=== PATIENT | female | born 1990 | race Caucasian/White ===

== ENCOUNTER 2018-12-18 09:44 | Inpatient (IN) | payer MEDICAID ==
[~2018-12-18 09:44] MED LIST: Buffered Lidocaine 1% SYRIN* 1 ML/SYRINGE INTRADERM ONE; Famotidine IV* 10 MG/ML 2 ML (20 mg) IV ONE; Lactated Ringers 1000 ML Bag* 1,000 ML IV SCH
[2018-12-18] MEDS ORDERED: KETAMINE HCL* 50 MG/ML 10 ML VIAL ONE (10:23)
[2018-12-18] MEDS ORDERED: fentaNYL* 50 MCG/ML 2 ML VIAL (100 MCG VIAL) ONE (10:23)
[2018-12-18] MEDS ORDERED: Midazolam* 1 MG/ML 5 ML VIAL (5 MG) ONE (10:24)
[2018-12-18] MEDS ORDERED: Morphine PF AMP (0.5MG/ML)* 5 MG/10 ML AMP ONE (10:24)
[2018-12-18] MEDS ORDERED: ceFOXitin 2 GM IVPREMIX* 2 GM/50 ML BAG ONE (10:31)
[2018-12-18] MEDS ORDERED: Scopolamine 1.5 mg* PATCH ONE (11:17)
[2018-12-18] MEDS ORDERED: PROCHLORPERAZINE INJ 5 MG/ML 2 ML VIAL IV PRN (11:20)
[2018-12-18] MEDS ORDERED: Ondansetron INJ* 2 MG/ML VIAL IV PRN (11:20)
[2018-12-18] MEDS ORDERED: oxyCODONE/Acetamin 5/325 MG* TAB PO PRN (11:20)
[2018-12-18] MEDS ORDERED: DiMENhydriNATE IV* 50 MG/ML VIAL IV PUSH PRN (11:20)
[2018-12-18] MEDS ORDERED: Ketorolac INJ* 30 MG/ML 1 ML VIAL IV PRN (11:20)
[2018-12-18] MEDS ORDERED: Naloxone* 0.4 MG/ML 1 ML VIAL IV PRN ×2 (11:20→11:24)
[2018-12-18] MEDS ORDERED: Scopolamine 1.5 mg* PATCH TRANSDERM PRN (11:20)
[2018-12-18] MEDS ORDERED: Naloxone* 2 MG in NS 0.9% 250 ML* 250 ML IV PRN (11:20)
[2018-12-18] MEDS ORDERED: fentaNYL* 50 MCG/ML 2 ML VIAL (100 MCG VIAL) IV PRN (11:24)
[2018-12-18] MEDS ORDERED: Phenylephrine 10 MG/ML VIAL* 1 ML VIAL ONE (11:42)
[2018-12-18] MEDS ORDERED: Ketorolac INJ* 30 MG/ML 1 ML VIAL ONE (11:42)
[2018-12-18] MEDS ORDERED: EPHEDrine (Pressors)* 50 MG/ML VIAL ONE (11:42)
[2018-12-18] MEDS ORDERED: Ondansetron INJ* 2 MG/ML VIAL ONE (11:42)
[2018-12-18] MEDS ORDERED: Dexamethasone IV* 4 MG/ML 1 ML (4 MG) ONE (11:42)
[2018-12-18] MEDS ORDERED: OXYTOCIN* 10 UNITS/ML 1 ML VIAL ONE (11:51)
[2018-12-18] MEDS ORDERED: Witch Hazel PAD* JAR TOPICAL PRN (12:09)
[2018-12-18] MEDS ORDERED: Acetaminophen TAB* 325 MG PO PRN (12:09)
[2018-12-18] MEDS ORDERED: Tetan/Diph/Pertus SYR(Tdap)* 0.5 ML SYR(BOOSTRIX) use SYR IM ONE (12:09)
[2018-12-18] MEDS ORDERED: Glycerin ADULT SUPP PR PRN (12:09)
[2018-12-18] MEDS ORDERED: Dibucaine 1% 28.35 GM TUBE PR PRN (12:09)
[2018-12-18] MEDS ORDERED: Lactated Ringers 1000 ML Bag* 1,000 ML IV SCH (13:00)
[2018-12-18] MEDS ORDERED: Oxytocin in LR* 20 UNITS/1,000 ML BAG IVPB SCH (13:00)
[2018-12-18] MEDS: Nalbuphine* 10 MG/ML 1 ML VIAL IV PRN (13:18)
[2018-12-18] MEDS: Simethicone TAB* 80 MG TAB.CHEW PO SCH ×3 (17:46→21:05)
[2018-12-18] MEDS: Docusate CAP* 100 MG PO SCH ×2 (17:46→21:05)
--- NOTE | 2018-12-18 21:48 | OP ---
OPERATIVE REPORT: DATE OF OPERATION: 12/18/18 DATE OF : 89 SURGEON: Jc Brand MD. BUILDING ADMIN: Toño Daniels CNM and Genevieve Doan CNM. ANESTHESIA: Spinal. PRE-OP DIAGNOSIS: Ronaldo breech and failed version. POST-OP DIAGNOSIS: Ronaldo breech and failed version. OPERATIVE PROCEDURE: Low transverse section. ESTIMATED BLOOD LOSS: 600 cc. FINDINGS: This is a 28-year-old 2, para 1, previous vaginal who presented with a baby in breech presentation. She had tried a version in the previous week without success. At the time o f , she had a viable female. Apgars 8 and 8. Weight was 8 pounds 2 ounces in the ronaldo breec h position. There were normal-appearing uterus, fallopian tubes, and ovaries. No septum or other an omalies of the uterus were noted. DESCRIPTION OF PROCEDURE: The patient was identified and procedure identified as a low transverse ce sarean section. The patient was taken to the operating room and prepped and draped in the usual [facility] ion in the left lateral recumbent position under spinal anesthesia. A Pfannenstiel incision was [place] ied down through fat, fascia, and peritoneum. A transverse incision was made in the low uterine segm ent after the Bry retractor had been placed and the incision was extended using blunt dissection. The above was delivered with ease in the ronaldo breech presentation using the breech extractio n manner. There was a nuchal cord x1, which was looped off easily. The cord was doubly clamped and the infant was handed to the waiting counter caser. Cord blood was obtained. Placenta delivered spon taneously. The uterus was wiped out with a wet lap sponge. The uterine incision was then closed usi ng 0 Polysorb in a running fashion. A second layer was used to imbricate the first layer. Good hemo stasis was verified in the uterine incision and the Bry retractor was removed. The peritoneum was then closed using 3-0 Polysorb in a running fashion. Good hemostasis was achieved in the subrectus layers. The fascia was closed using 0 Polysorb in a running fashion. Hemostasis was achieved in the subcu. Copious irrigation was utilized and suctioned out. The space was closed using 3-0 Vicry l in a simple fashion x4 and the skin was closed with 4-0 Monocryl in a subcuticular fashion. All sp onge and instrument counts were correct. The patient was returned to recovery room in stable conditi on. [id number]/[facility] #: [id number]
[2018-12-19] MEDS: Nalbuphine* 10 MG/ML 1 ML VIAL IV PRN (01:57)
[2018-12-19] MEDS ORDERED: Zolpidem TAB* 5 MG PO PRN (03:06)
[2018-12-19] MEDS: Ibuprofen TAB* 600 MG PO PRN ×3 (05:36→18:40)
[2018-12-19 07:01] LABS: ABS Basophils 0 10^3/ul (0-0.2); ABS Eosinophils 0 10^3/ul (0-0.6); ABS Lymphocytes 2.2 10^3/ul (1.0-4.8); ABS Monocytes 0.8 10^3/ul (0-0.8); ABS Neutrophils 8.5 10^3/ul (1.5-7.7); ABS Nucleated RBC 0 10^3/ul; Eosinophil % 0.1 %; Hematocrit 25 % (33-41); Hemoglobin 7.8 g/dL (12.0-16.0); Lymphocyte % 19.3 %; Mean Corpuscular HGB Conc 31 g/dL (31-36); Mean Corpuscular Hemoglobin 25 pg (27-31); Mean Corpuscular Volume 79 fL (80-97); Mean Platelet Volume 8.8 fL (7.4-10.4); Nucleated Red Blood Cells % 0; Platelet Count 186 10^3/uL (150-450); Red Blood Count 3.17 10^6 /uL (3.70-4.87); Red Cell Distribution Width 17 % (10.5-15); White Blood Count 11.5 10^3/uL (3.5-10.8)
[2018-12-19] MEDS: oxyCODONE/Acetamin 5/325 MG* TAB PO PRN ×4 (08:08→20:14)
[2018-12-19] MEDS: Ferrous Gluconate TAB* 324 MG TAB PO SCH ×2 (08:09→20:14)
[2018-12-19] MEDS: Simethicone TAB* 80 MG TAB.CHEW PO SCH ×4 (08:09→20:14)
[2018-12-19] MEDS: Docusate CAP* 100 MG PO SCH ×3 (08:09→20:14)
[2018-12-19] MEDS ORDERED: diPHENhydraMINE PO* 25 MG PO PRN (09:03)
[2018-12-20] MEDS: Ibuprofen TAB* 600 MG PO PRN ×2 (00:46→11:11)
[2018-12-20 08:32] VITALS: BP 120/60
[2018-12-20] MEDS: Docusate CAP* 100 MG PO SCH (11:11)
[2018-12-20] MEDS: Ferrous Gluconate TAB* 324 MG TAB PO SCH (11:11)
[2018-12-20] MEDS: Simethicone TAB* 80 MG TAB.CHEW PO SCH (11:11)
[2018-12-21] MEDS ORDERED: Scopolamine PATCH Remove* 1 NOTE MISC PATCH OFF PRN (11:23)
== END 2018-12-20 16:21 | disposition home or self-care (01) | DRG 540 ==
LOC: MCHOB 09:44
PROVIDERS: ADMIT Obstetrics & Gynecology; ATTEND Obstetrics & Gynecology
PROC: 4A1HXCZ Monitoring of Products of Conception, Cardiac Rate, External Approach (ICD-10-PCS; 2018-12-18)
PROC: 10D00Z1 Extraction of Products of Conception, Low, Open Approach (ICD-10-PCS; principal; 2018-12-18 11:00)
DX: O32.1XX0 Maternal care for breech presentation, not applicable or unspecified (principal); O69.81X0 Labor and delivery complicated by cord around neck, without compression, not applicable or unspecified; O99.214 Obesity complicating childbirth; Z37.0 Single live birth; Z3A.39 39 weeks gestation of pregnancy; O90.81 Anemia of the puerperium
CPT/HCPCS: 36415; 85025; A9270-GY; J0694; J1100; J1240; J1885; J2250; J2300; J2405; J2590; J3010